=== PATIENT | male | born 1955 | race African-American/Black ===

== ENCOUNTER 2019-12-11 03:36 | Emergency (ER) | payer SELFPAY ==
[~2019-12-11] VITALS: Ht 193 cm; Wt 85.0 kg
[2019-12-11] MEDS ORDERED: ONDANSETRON HCL 4MG/2ML INJ IV STA (03:52)
[2019-12-11] MEDS ORDERED: SODIUM CHLORIDE 0.9% 1,000 ML IV ONE (03:52)
[2019-12-11] MEDS ORDERED: LEVETIRACETAM 500MG PREMIX 100 ML IV ONE (04:00)
[2019-12-11 04:11] LABS: HEMATOCRIT. 44.7 % (42.0-52.0); HEMOGLOBIN. 14.8 g/dL (14.0-18.0); MEAN CORPUSCULAR HEMOGLOBIN 32.2 pg (28.0-32.0); MEAN CORPUSCULAR VOLUME 97.3 fL (80.0-94.0); MEAN PLATELET VOLUME 9.5 fl (7.4-10.4); PLATELET 178 x1000/uL (130-400); RED BLOOD CELL COUNT 4.59 mill/uL (4.7-6.1); RED CELL DISTRIBUTION WIDTH 15.2 % (11.6-14.6)
[2019-12-11 04:17] LABS: CHLORIDE 89 mEq/L (98-107)
[2019-12-11 04:20] LABS: INR 0.9; PROTHROMBIN TIME 10.2 sec (9.6-11.0)
[2019-12-11 04:22] LABS: ETHANOL BLOOD < 10 mg/dL
[2019-12-11 04:26] LABS: BG BASE EXCESS -4.4 mmol/L (-2.0-2.0); BG CARBOXYHEMOGLOBIN 0.9 % (0.5-1.5); BG DEOXYHEMOGLOBIN 6.2 % (0.0-5.0); BG FRACTION INSPIRED OXYGEN 21; BG HCO3 ACT 19.8 mmol/L (22.0-26.0); BG METHEMOGLOBIN 0.3 % (0.0-1.5); BG OXYGEN SATURATION 93.7 % (92.0-98.5); BG OXYHEMOGLOBIN 92.6 % (94.0-97.0); BG PCO2 34.2 mmHg (35.0-45.0); BG PH 7.381 (7.350-7.450); BG PO2 74.5 mmHg (75.0-100.0); BG SAMPLE SITE RIGHT RADIAL; BG TOTAL HEMOGLOBIN 13.7 g/dL (12.0-18.0); BG VENT MODE ROOM AIR
[2019-12-11 04:50] LABS: PLATELET ESTIMATE NORMAL
[2019-12-11 05:29] LABS: CLARITY URINE CLOUDY (CLEAR); COLOR URINE YELLOW (YELLOW); KETONES URINE TRACE (NEGATIVE); LEUKOCYTE ESTERASE URINE NEGATIVE (NEGATIVE); NITRITE URINE NEGATIVE (NEGATIVE); OCCULT BLOOD URINE NEGATIVE (NEGATIVE); PROTEIN URINE TRACE (NEGATIVE); SPECIFIC GRAVITY URINE 1.015 (1.005-1.030); UROBILINOGEN URINE 0.2 E.U./dL (0.2-1.0)
[2019-12-11 05:47] LABS: *AMPHETAMINES SCREEN URINE NEGATIVE (NEGATIVE); *BARBITURATES SCREEN URINE NEGATIVE (NEGATIVE); *BENZODIAZEPINES SCREEN URINE NEGATIVE (NEGATIVE); *COCAINE SCREEN URINE NEGATIVE (NEGATIVE); METHADONE URINE SCREEN NEGATIVE (NEGATIVE); OPIATES URINE SCREEN NEGATIVE (NEGATIVE)
[2019-12-11 05:48] LABS: PHENCYCLIDINE URINE SCREEN NEGATIVE (NEGATIVE)
[2019-12-11 05:58] LABS: CANNABINOID URINE SCREEN NEGATIVE (NEGATIVE)
[2019-12-11 06:50] VITALS: BP 117/71
== END 2019-12-11 07:10 | disposition short-term general hospital (02) ==
LOC: ER 03:43
DX: R41.82 Altered mental status, unspecified (principal); R56.1 Post traumatic seizures; R53.1 Weakness; R41.0 Disorientation, unspecified; F19.10 Other psychoactive substance abuse, uncomplicated
CPT/HCPCS: 36415; 36600; 70450; 71045; 80053; 80305; 80320; 81003; 82375; 82805; 82962; 83605; 84484; 85025; 85610; 93005; 96365; 96375; 99285; J1953; J2405; J7030; G0480

== ENCOUNTER 2020-01-06 05:01 | Inpatient (IN) | payer OTHER, MEDICARE ==
[~2020-01-06] VITALS: Ht 165.1 cm; Wt 74.4 kg
[2020-01-06] MEDS ORDERED: LORAZEPAM 2MG/ML CPJ IV ONE ×3 (05:45→09:30)
[2020-01-06 05:48] LABS: MEAN CORPUSCULAR HEMOGLOBIN 31.8 pg (28.0-32.0); MEAN CORPUSCULAR VOLUME 93.6 fL (80.0-94.0); MEAN PLATELET VOLUME 9.2 fl (7.4-10.4); PLATELET 216 x1000/uL (130-400)
[2020-01-06 05:52] LABS: CHLORIDE 103 mEq/L (98-107)
[2020-01-06 05:56] LABS: ETHANOL BLOOD < 10 mg/dL
[2020-01-06] MEDS ORDERED: LEVETIRACETAM 500MG PREMIX 100 ML IV ONE ×2 (06:30)
[2020-01-06] MEDS ORDERED: LABETALOL 5MG/ML SYR 20 MG/4 ML SYRINGE IV ONE (06:30)
[2020-01-06] MEDS ORDERED: SODIUM CHLORIDE 0.9% 1000ML BAG (SEPSIS BOLUS) IV ONE (06:30)
[2020-01-06 06:56] LABS: ATYPICAL LYMPHOCYTES 1; PLATELET ESTIMATE NORMAL
[2020-01-06] MEDS ORDERED: PIPERACILLIN/TAZ 3.375G PREMIX 50 ML IV ONE (07:15)
[2020-01-06] MEDS ORDERED: VANCOMYCIN 1 G PREMIX 200 ML IV ONE (07:15)
[2020-01-06] MEDS ORDERED: NITROGLYCERIN OINT 1GM/INCH UDPKT TD ONE (07:45)
[2020-01-06 09:52] LABS: CLARITY URINE CLOUDY (CLEAR); COLOR URINE YELLOW (YELLOW); KETONES URINE NEGATIVE (NEGATIVE); LEUKOCYTE ESTERASE URINE NEGATIVE (NEGATIVE); NITRITE URINE NEGATIVE (NEGATIVE); OCCULT BLOOD URINE NEGATIVE (NEGATIVE); PH URINE 5.5 (4.5-8.0); PROTEIN URINE TRACE (NEGATIVE); SPECIFIC GRAVITY URINE 1.021 (1.005-1.030); UROBILINOGEN URINE 0.2 E.U./dL (0.2-1.0)
[2020-01-06 10:11] LABS: *AMPHETAMINES SCREEN URINE NEGATIVE (NEGATIVE); *BARBITURATES SCREEN URINE NEGATIVE (NEGATIVE); *BENZODIAZEPINES SCREEN URINE NEGATIVE (NEGATIVE); *COCAINE SCREEN URINE NEGATIVE (NEGATIVE); CANNABINOID URINE SCREEN NEGATIVE (NEGATIVE); METHADONE URINE SCREEN NEGATIVE (NEGATIVE); OPIATES URINE SCREEN NEGATIVE (NEGATIVE); PHENCYCLIDINE URINE SCREEN NEGATIVE (NEGATIVE)
[2020-01-06 10:26] LABS: BG BASE EXCESS 0.4 mmol/L (-2.0-2.0); BG CARBOXYHEMOGLOBIN 1.3 % (0.5-1.5); BG DEOXYHEMOGLOBIN 2.7 % (0.0-5.0); BG FRACTION INSPIRED OXYGEN 36; BG HCO3 ACT 26.3 mmol/L (22.0-26.0); BG METHEMOGLOBIN 0.3 % (0.0-1.5); BG OXYGEN SATURATION 97.3 % (92.0-98.5); BG OXYHEMOGLOBIN 95.7 % (94.0-97.0); BG PCO2 47.4 mmHg (35.0-45.0); BG PH 7.362 (7.350-7.450); BG PO2 98.8 mmHg (75.0-100.0); BG SAMPLE SITE RIGHT RADIAL; BG TOTAL HEMOGLOBIN 13.1 g/dL (12.0-18.0); BG VENT MODE NASAL CANNULA
[2020-01-06] MEDS ORDERED: ACETAMINOPHEN 325MG TABLET PO PRN (12:15)
[2020-01-06] MEDS ORDERED: BENZONATATE 100MG CAPSULE PO PRN (12:15)
[2020-01-06] MEDS ORDERED: AZITHROMYCIN 500 MG TABLET PO SCH (13:00)
[2020-01-06] MEDS ORDERED: CEFTRIAXONE 1 G PREMIX 50 ML IV SCH (13:00)
[2020-01-06] MEDS: AZITHROMYCIN 500MG in DEXTROSE 5% WATER 250ML IV SCH (14:08)
[2020-01-06] MEDS: ENOXAPARIN 40MG/0.4ML SYR SUBCUT SCH (14:29)
[2020-01-06] MEDS: LORAZEPAM 2MG/ML CPJ IV PRN (14:32)
[2020-01-06] MEDS: ASCORBIC ACID 500 MG TABLET PO SCH (21:00)
[2020-01-06] MEDS ORDERED: HYDRALAZINE 20MG/ML VIAL IV PRN (21:00)
[2020-01-06] MEDS ORDERED: LEVETIRACETAM 500MG PREMIX 100 ML IV SCH (21:00)
[2020-01-06] MEDS ORDERED: HYDRALAZINE HCL 50MG TABLET PO SCH (21:00)
[2020-01-06] MEDS: AMLODIPINE 5MG TABLET PO SCH (21:00)
[2020-01-06] MEDS ORDERED: LEVETIRACETAM 500MG TABLET PO SCH (21:00)
[2020-01-06] MEDS: LORAZEPAM 2MG/ML CPJ IM PRN (21:03)
[2020-01-06 21:42] VITALS: BP 162/90
[2020-01-07] VITALS: BP 169/99
[2020-01-07] MEDS ORDERED: LEVETIRACETAM 500MG PREMIX 100 ML IV SCH
[2020-01-07] MEDS: DEXT 5%/0.45% NACL 1000ML 1,000 ML IV SCH ×2 (00:24→13:40)
[2020-01-07] MEDS ORDERED: LEVE500T19 PO (01:05)
[2020-01-07] MEDS ORDERED: ATOR-2 PO (01:05)
[2020-01-07] MEDS ORDERED: NALT50TA5 GT (01:05)
[2020-01-07] MEDS ORDERED: LISI-604 PO (01:05)
[2020-01-07] MEDS: LORAZEPAM 2MG/ML CPJ IM PRN ×5 (03:45→23:34)
[2020-01-07] MEDS: LORAZEPAM 2MG/ML CPJ IV PRN (03:46)
[2020-01-07 04:00] VITALS: BP 160/82
[2020-01-07] MEDS ORDERED: LEVETIRACETAM 1,000 MG in SODIUM CHLORIDE 0.9% 100 ML IV SCH (06:45)
[2020-01-07 08:00] VITALS: BP 160/88
[2020-01-07] MEDS: LEVETIRACETAM 1,000 MG in SODIUM CHLORIDE 0.9% 100 ML IV SCH ×2 (08:58→20:59)
[2020-01-07] MEDS: AMLODIPINE 5MG TABLET PO SCH ×2 (09:00→21:00)
[2020-01-07] MEDS: ZINC SULFATE 220 MG ( 50 ) CAPSULE PO SCH (09:00)
[2020-01-07] MEDS: HYDRALAZINE HCL 100MG TABLET PO SCH ×3 (09:00→21:17)
[2020-01-07] MEDS: ASCORBIC ACID 500 MG TABLET PO SCH ×2 (09:00→21:00)
[2020-01-07 12:00] VITALS: BP 160/90
[2020-01-07] MEDS ORDERED: CEFTRIAXONE 1,000 MG in DEXTROSE 5% WATER 50 ML IV SCH (13:00)
[2020-01-07] MEDS: AZITHROMYCIN 500MG in DEXTROSE 5% WATER 250ML IV SCH (13:39)
[2020-01-07] MEDS: ENOXAPARIN 40MG/0.4ML SYR SUBCUT SCH (13:40)
[2020-01-07 16:00] VITALS: BP 153/87
[2020-01-07] MEDS ORDERED: LOSARTAN POTASSIUM 50 MG TABLET PO SCH (16:30)
[2020-01-07 20:46] VITALS: BP 181/105
[2020-01-07] MEDS: HYDRALAZINE 20MG/ML VIAL IV PRN (20:59)
[2020-01-08] VITALS (35 sets, daily range): BP systolic 83–178; BP diastolic 48–120
[2020-01-08] MEDS: DEXT 5%/0.45% NACL 1000ML 1,000 ML IV SCH ×2 (02:49→15:53)
[2020-01-08] MEDS: LORAZEPAM 2MG/ML CPJ IM PRN ×2 (04:04→11:26)
[2020-01-08] MEDS: HYDRALAZINE 20MG/ML VIAL IV PRN ×2 (04:11→15:54)
[2020-01-08] MEDS: HYDRALAZINE HCL 100MG TABLET PO SCH (05:23)
[2020-01-08 06:19] LABS: BASOPHILS % 0.4 % (0.0-2.0); EOSINOPHILS % 0.7 % (0.0-5.0); HEMATOCRIT. 43.2 % (42.0-52.0); HEMOGLOBIN. 14.8 g/dL (14.0-18.0); LYMPHOCYTES % 9.8 % (20.0-50.0); MEAN CORPUSCULAR HEMOGLOBIN 31.7 pg (28.0-32.0); MEAN CORPUSCULAR VOLUME 92.8 fL (80.0-94.0); MONOCYTES % 9.9 % (2.0-8.0); NEUTROPHILS % 79.2 % (40.0-76.0); PLATELET 183 x1000/uL (130-400); RED BLOOD CELL COUNT 4.66 mill/uL (4.7-6.1); RED CELL DISTRIBUTION WIDTH 16.2 % (11.6-14.6)
[2020-01-08 06:35] LABS: CHLORIDE 109 mEq/L (98-107)
[2020-01-08] MEDS: AMLODIPINE 5MG TABLET PO SCH ×2 (09:00→21:00)
[2020-01-08] MEDS: ZINC SULFATE 220 MG ( 50 ) CAPSULE PO SCH (09:00)
[2020-01-08] MEDS: ASCORBIC ACID 500 MG TABLET PO SCH ×2 (09:00→21:37)
[2020-01-08] MEDS: LEVETIRACETAM 1,000 MG in SODIUM CHLORIDE 0.9% 100 ML IV SCH (10:12)
[2020-01-08] MEDS ORDERED: POTASSIUM CHLORIDE INJ 40 MEQ in DEXT 5% WATER 250 ML IV SCH (11:00)
[2020-01-08] MEDS ORDERED: ENALAPRIL 1.25MG/ML VIAL 1ML IV SCH (12:00)
[2020-01-08 12:56] LABS: CREATINE KINASE 1909 IU/L (39-308)
[2020-01-08] MEDS ORDERED: PHENYTOIN SODIUM 1,000 MG in SODIUM CHLORIDE 0.9% 100 ML IV SCH (13:00)
[2020-01-08] MEDS ORDERED: CEFTRIAXONE 1 G PREMIX 50 ML IV SCH (13:00)
[2020-01-08] MEDS: HYDRALAZINE 20MG/ML VIAL IV SCH ×3 (13:27→18:23)
[2020-01-08] MEDS: ENOXAPARIN 40MG/0.4ML SYR SUBCUT SCH (13:28)
[2020-01-08] MEDS ORDERED: VECURONIUM BROMIDE 10 MG/VIAL IV ONE (13:35)
[2020-01-08] MEDS ORDERED: ETOMIDATE 2MG/ML 10ML VIAL IV ONE (13:35)
[2020-01-08] MEDS: AZITHROMYCIN 500MG in DEXTROSE 5% WATER 250ML IV SCH (14:28)
[2020-01-08] MEDS: PROPOFOL 10MG/ML 100ML 100 ML IV PRN (14:28)
[2020-01-08] MEDS ORDERED: CLONIDINE 0.1MG TABLET PO PRN (14:30)
[2020-01-08 15:11] LABS: BG BASE EXCESS -1.7 mmol/L (-2.0-2.0); BG CARBOXYHEMOGLOBIN 0.5 % (0.5-1.5); BG DEOXYHEMOGLOBIN 0.5 % (0.0-5.0); BG HCO3 ACT 23.2 mmol/L (22.0-26.0); BG METHEMOGLOBIN 0.2 % (0.0-1.5); BG OXYGEN SATURATION 99.5 % (92.0-98.5); BG OXYHEMOGLOBIN 98.8 % (94.0-97.0); BG PCO2 39.7 mmHg (35.0-45.0); BG PH 7.384 (7.350-7.450); BG PO2 373.6 mmHg (75.0-100.0); BG SAMPLE SITE RIGHT RADIAL; BG TIDAL VOLUME(mL) 500 mL; BG TOTAL HEMOGLOBIN 14.8 g/dL (12.0-18.0); BG VENT MODE VENT - A/C; BG VENT RATE 14 set
[2020-01-08] MEDS ORDERED: NICARDIPINE 40MG/200ML PREMIX 200 ML IV PRN (15:45)
[2020-01-08] MEDS ORDERED: NICARDIPINE 50 MG in SODIUM CHLORIDE 0.9% 230 ML IV PRN (16:15)
[2020-01-08] MEDS ORDERED: POTASSIUM CHLORIDE INJ 40 MEQ in DEXT 5% WATER 250 ML IV NR (18:00)
[2020-01-08] MEDS: ENALAPRIL 1.25MG/ML VIAL 1ML IV SCH (18:23)
[2020-01-08] MEDS: LEVETIRACETAM 1,500 MG in SODIUM CHLORIDE 0.9% 100 ML IV SCH (21:37)
[2020-01-09] VITALS (62 sets, daily range): BP systolic 101–151; BP diastolic 60–91
[2020-01-09] MEDS: PROPOFOL 10MG/ML 100ML 100 ML IV PRN ×5 (01:00→18:38)
[2020-01-09] MEDS: DEXT 5%/0.45% NACL 1000ML 1,000 ML IV SCH ×2 (04:56→18:55)
[2020-01-09] MEDS: ENALAPRIL 1.25MG/ML VIAL 1ML IV SCH ×2 (06:00)
[2020-01-09] MEDS: HYDRALAZINE 20MG/ML VIAL IV SCH ×2 (06:00)
[2020-01-09 06:39] LABS: HEMATOCRIT. 41.3 % (42.0-52.0); HEMOGLOBIN. 13.3 g/dL (14.0-18.0); MEAN CORPUSCULAR HEMOGLOBIN 31.1 pg (28.0-32.0); MEAN CORPUSCULAR VOLUME 96.7 fL (80.0-94.0); MEAN PLATELET VOLUME 10.4 fl (7.4-10.4); PLATELET 138 x1000/uL (130-400); RED BLOOD CELL COUNT 4.27 mill/uL (4.7-6.1); RED CELL DISTRIBUTION WIDTH 16.9 % (11.6-14.6)
[2020-01-09 06:44] LABS: CHLORIDE 110 mEq/L (98-107)
[2020-01-09] MEDS ORDERED: LIDOCAINE HCL 1% 20ML VIAL (Pyxis) INJ ONE (08:37)
[2020-01-09] MEDS: AMLODIPINE 5MG TABLET PO SCH (08:53)
[2020-01-09] MEDS: ZINC SULFATE 220 MG ( 50 ) CAPSULE PO SCH (08:53)
[2020-01-09] MEDS: ASCORBIC ACID 500 MG TABLET PO SCH (08:53)
[2020-01-09] MEDS: LEVETIRACETAM 1,500 MG in SODIUM CHLORIDE 0.9% 100 ML IV SCH ×2 (08:54→21:14)
[2020-01-09 09:22] LABS: BG BASE EXCESS -1.1 mmol/L (-2.0-2.0); BG CARBOXYHEMOGLOBIN 0.3 % (0.5-1.5); BG FRACTION INSPIRED OXYGEN 50; BG HCO3 ACT 22.8 mmol/L (22.0-26.0); BG METHEMOGLOBIN 0.1 % (0.0-1.5); BG OXYHEMOGLOBIN 98.6 % (94.0-97.0); BG PCO2 35.6 mmHg (35.0-45.0); BG PH 7.425 (7.350-7.450); BG PO2 216.8 mmHg (75.0-100.0); BG SAMPLE SITE RIGHT RADIAL; BG TIDAL VOLUME(mL) 500 mL; BG TOTAL HEMOGLOBIN 13.2 g/dL (12.0-18.0); BG VENT MODE VENT - A/C; BG VENT RATE 14 set
[2020-01-09] MEDS: LORAZEPAM 2MG/ML CPJ IM PRN (09:53)
[2020-01-09 11:36] LABS: PLATELET ESTIMATE NORMAL
[2020-01-09] MEDS: ENOXAPARIN 40MG/0.4ML SYR SUBCUT SCH (13:23)
[2020-01-09] MEDS: AZITHROMYCIN 500MG in DEXTROSE 5% WATER 250ML IV SCH (15:31)
[2020-01-09] MEDS: PHENYTOIN SODIUM 100MG/2ML VIAL IV SCH (21:13)
[2020-01-10] VITALS (65 sets, daily range): BP systolic 102–143; BP diastolic 67–90
[2020-01-10] MEDS: PROPOFOL 10MG/ML 100ML 100 ML IV PRN ×5 (02:10→20:49)
[2020-01-10 07:19] LABS: BG BASE EXCESS 1.7 mmol/L (-2.0-2.0); BG CARBOXYHEMOGLOBIN 0.7 % (0.5-1.5); BG DEOXYHEMOGLOBIN 1.7 % (0.0-5.0); BG FRACTION INSPIRED OXYGEN 35; BG HCO3 ACT 25.6 mmol/L (22.0-26.0); BG METHEMOGLOBIN 0.3 % (0.0-1.5); BG OXYGEN SATURATION 98.3 % (92.0-98.5); BG OXYHEMOGLOBIN 97.3 % (94.0-97.0); BG PCO2 37.7 mmHg (35.0-45.0); BG PH 7.449 (7.350-7.450); BG PO2 128.9 mmHg (75.0-100.0); BG SAMPLE SITE RIGHT RADIAL; BG TIDAL VOLUME(mL) 500 mL; BG TOTAL HEMOGLOBIN 13.6 g/dL (12.0-18.0); BG VENT MODE VENT - A/C; BG VENT RATE 14 set
[2020-01-10] MEDS: LEVETIRACETAM 1,500 MG in SODIUM CHLORIDE 0.9% 100 ML IV SCH ×2 (08:44→20:50)
[2020-01-10] MEDS: ZINC SULFATE 220 MG ( 50 ) CAPSULE PO SCH (08:44)
[2020-01-10] MEDS: DEXT 5%/0.45% NACL 1000ML 1,000 ML IV SCH ×2 (08:44→20:50)
[2020-01-10] MEDS: THIAMINE HCL 100MG TABLET PO SCH (08:44)
[2020-01-10] MEDS: FOLIC ACID 1MG TABLET PO SCH (08:44)
[2020-01-10 13:26] LABS: BASOPHILS % 0.5 % (0.0-2.0); EOSINOPHILS % 4.5 % (0.0-5.0); HEMATOCRIT. 39.8 % (42.0-52.0); HEMOGLOBIN. 13.5 g/dL (14.0-18.0); LYMPHOCYTES % 10.9 % (20.0-50.0); MEAN CORPUSCULAR HEMOGLOBIN 31.7 pg (28.0-32.0); MEAN CORPUSCULAR VOLUME 93.6 fL (80.0-94.0); MEAN PLATELET VOLUME 9.6 fl (7.4-10.4); MONOCYTES % 11.2 % (2.0-8.0); NEUTROPHILS % 72.9 % (40.0-76.0); PLATELET 148 x1000/uL (130-400); RED BLOOD CELL COUNT 4.25 mill/uL (4.7-6.1); RED CELL DISTRIBUTION WIDTH 16.3 % (11.6-14.6)
[2020-01-10 13:42] LABS: CHLORIDE 110 mEq/L (98-107)
[2020-01-10] MEDS: ENOXAPARIN 40MG/0.4ML SYR SUBCUT SCH (14:23)
[2020-01-10] MEDS ORDERED: POTASSIUM CHLORIDE 20MEQ/PACKET PO NR (14:45)
[2020-01-10] MEDS: PHENYTOIN SODIUM 100MG/2ML VIAL IV SCH (20:50)
[2020-01-11] VITALS (34 sets, daily range): BP systolic 95–152; BP diastolic 61–90
[2020-01-11] MEDS: DEXT 5%/0.45% NACL 1000ML 1,000 ML IV SCH ×2 (02:25→11:39)
[2020-01-11] MEDS: PROPOFOL 10MG/ML 100ML 100 ML IV PRN ×3 (02:25→10:47)
[2020-01-11] MEDS: FOLIC ACID 1MG TABLET PO SCH (08:33)
[2020-01-11] MEDS: THIAMINE HCL 100MG TABLET PO SCH (08:33)
[2020-01-11] MEDS: ZINC SULFATE 220 MG ( 50 ) CAPSULE PO SCH (08:33)
[2020-01-11] MEDS ORDERED: LORAZEPAM 2MG/ML CPJ IV PRN (10:00)
[2020-01-11] MEDS ORDERED: IPRATROPIUM/ALBUTEROL 0.5-3(2.5)MG/3ML NEB HHN PRN (10:15)
[2020-01-11] MEDS: LEVETIRACETAM 1,500 MG in SODIUM CHLORIDE 0.9% 100 ML IV SCH (10:47)
[2020-01-11] MEDS ORDERED: IPRATROPIUM/ALBUTEROL 0.5-3(2.5)MG/3ML NEB HHN SCH (12:00)
[2020-01-11] MEDS ORDERED: PROPOFOL 10MG/ML 100ML 100 ML IV PRN (14:00)
[2020-01-11] MEDS: ENOXAPARIN 40MG/0.4ML SYR SUBCUT SCH (15:07)
[2020-01-11 15:47] LABS: BASOPHILS % 0.6 % (0.0-2.0); EOSINOPHILS % 8.7 % (0.0-5.0); HEMOGLOBIN. 13.6 g/dL (14.0-18.0); LYMPHOCYTES % 12.5 % (20.0-50.0); MEAN CORPUSCULAR HEMOGLOBIN 31.2 pg (28.0-32.0); MEAN PLATELET VOLUME 9.4 fl (7.4-10.4); MONOCYTES % 11.7 % (2.0-8.0); NEUTROPHILS % 66.5 % (40.0-76.0); PLATELET 133 x1000/uL (130-400); RED BLOOD CELL COUNT 4.36 mill/uL (4.7-6.1); RED CELL DISTRIBUTION WIDTH 16.3 % (11.6-14.6)
[2020-01-11 15:57] LABS: CHLORIDE 109 mEq/L (98-107)
[2020-01-11 16:03] LABS: PHOSPHORUS 3.9 mg/dL (2.5-4.9)
== END 2020-01-11 16:39 | disposition short-term general hospital (02) | DRG 871 ==
LOC: ER 05:01 → EDBEDREQ 07:31 → ENRESERV 19:56 → 7EST 21:35 → 5WST 01-07 23:46 → CVICU 01-08 12:59
PROVIDERS: ADMIT Internal Medicine; ATTEND Internal Medicine
PROC: 5A1945Z Respiratory Ventilation, 24-96 Consecutive Hours (ICD-10-PCS; 2020-01-08)
PROC: 0BH17EZ Insertion of Endotracheal Airway into Trachea, Via Natural or Artificial Opening (ICD-10-PCS; 2020-01-08)
PROC: 02HV33Z Insertion of Infusion Device into Superior Vena Cava, Percutaneous Approach (ICD-10-PCS; principal; 2020-01-09)
PROC: B548ZZA Ultrasonography of Superior Vena Cava, Guidance (ICD-10-PCS; 2020-01-09)
DX: A41.9 Sepsis, unspecified organism (principal); J96.01 Acute respiratory failure with hypoxia; J69.0 Pneumonitis due to inhalation of food and vomit; I16.0 Hypertensive urgency; E87.6 Hypokalemia; I10 Essential (primary) hypertension; E78.00 Pure hypercholesterolemia, unspecified; F10.10 Alcohol abuse, uncomplicated; G40.901 Epilepsy, unspecified, not intractable, with status epilepticus; Z03.818 Encounter for observation for suspected exposure to other biological agents ruled out; Z79.899 Other long term (current) drug therapy
CPT/HCPCS: 36415; 36600; 70551; 71045; 76937; 80048; 80053; 80185; 80305; 80320; 81003; 82140; 82375; 82550; 82805; 83605; 83735; 83880; 84100; 84145; 84478; 84484; 85025; 87070; 87635; 87804; 93005; 94002; 99291; C1725; J0360; J0456; J0696; J1165; J1650; J1953; J2060; J2543; J2704; J3370; J3480; J3490; J7030; J7050; J7060; G0480; U0003-CS

== ENCOUNTER 2021-09-17 15:41 | Emergency (ER) | payer MEDICARE, OTHER ==
[~2021-09-17] VITALS: Ht 165.1 cm; Wt 89.0 kg
[~2021-09-17 15:41] MED LIST: ATOR-2 PO; LEVE500T19 PO; LISI20TA31 PO; NALT50TA5 GT
[2021-09-17 15:56] VITALS: BP 141/88
[2021-09-17] MEDS ORDERED: DIPHENHYDRAMINE 50MG CAPSULE PO ONE (17:00)
[2021-09-17] MEDS ORDERED: AMOXICILLIN/POTASSIUM CLAVULANATE 875/125MG TAB PO ONE (17:00)
[2021-09-17] MEDS ORDERED: HYDR50CA MT (17:05)
[2021-09-17] MEDS ORDERED: AMOX-424 MT (17:05)
== END 2021-09-17 17:21 | disposition home or self-care (01) ==
LOC: ER 15:41
DX: L30.9 Dermatitis, unspecified (principal); L03.90 Cellulitis, unspecified; I10 Essential (primary) hypertension
CPT/HCPCS: 99283; Q0163